=== PATIENT | female | born 1995 | race Caucasian/White ===

== ENCOUNTER 2017-01-25 15:16 | Outpatient (RCR) | payer OTHER | END 2017-04-23 14:14 | LOC: WSOH 15:16 | DX: S67.194A Crushing injury of right ring finger, initial encounter (principal); S61.204A Unspecified open wound of right ring finger without damage to nail, initial encounter; W23.1XXA Caught, crushed, jammed, or pinched between stationary objects, initial encounter; Y99.0 Civilian activity done for income or pay ==

== ENCOUNTER → 2017-05-17 | Outpatient (CLI) | payer BC | LOC: MC.RAD 13:00 | DX: N63.21 Unspecified lump in the left breast, upper outer quadrant (principal) ==

== ENCOUNTER → 2020-08-23 | Outpatient (CLI) | payer BC | LOC: COL.RAD 08:46 | DX: M25.511 Pain in right shoulder (principal) | CPT/HCPCS: A9585; Q9967 ==